=== PATIENT | male | born 1960 | race Caucasian/White ===

== ENCOUNTER 2016-10-31 12:37 | Emergency (ER) | payer MEDICARE, OTHER ==
[2016-10-31] MEDS ORDERED: LIDOCAINE 1% W/ EPINEPHRINE 20 ML VIAL INJ ONE (12:43)
[2016-10-31 13:02] VITALS: TEMP 96.4
[2016-10-31] MEDS ORDERED: TETANUS,DIPHTHERIA,PERTUSSIS 1 EA SYG IM ONE (13:24)
[2016-10-31] MEDS ORDERED: SULFA/TRIMETH 800/160 (DS) TAB 1 EA TAB PO ONE (13:24)
[2016-10-31] MEDS ORDERED: cefTRIAXone SODIUM 1 GM in SODIUM CHL 0.9% 50ML MIN-BAG+ 50 ML IVPB ONE (13:24)
[2016-10-31] MEDS ORDERED: KETOROLAC TROMETHAMINE INJ 30 MG/ML VIAL IV ONE (13:25)
[2016-10-31] MEDS ORDERED: SODIUM CHL 0.9% 50ML MIN-BAG+ 50 ML IVPB ONE (13:42)
[2016-10-31] MEDS ORDERED: cefTRIAXone SODIUM 1 GM VIAL ONE (13:42)
--- NOTE | 2016-10-31 13:57 | RAD ---
EXAM DESCRIPTION: Right tibia and fibula, two views. CLINICAL HISTORY: Laceration. Pain. FINDINGS/IMPRESSION: No radiopaque foreign body. There is some air within the soft tissues along the mid aspect of the lower leg No fracture or other bony abnormality Electronically signed by: Enio Omer MD 10/31/2016 13:55
--- NOTE | 2016-10-31 14:31 | ED.PDOC ---
History of Present Illness - General Chief Complaint: Laceration Stated Complaint: RLE laceration Time Seen by Provider: 10/31/16 13:24 Source: patient Exam Limitations: no limitations - History of Present Illness Initial Comments: the patient is a 55-year-old male presenting to the emergency room secondary to sustaining a laceration to his right lower extremity due to a lawnmower deck falling on his christensen. He sustained a V-shaped laceration through the skin that is approximately 5 inches on one arm and 4 inches on the other. Estimated blood loss of 20 cc. 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 No other injuries. He does have a history of substance abuse. He was able to ambulate in Timing/Duration: momentarily Severity: moderate Improving Factors: nothing Worsening Factors: nothing Allergies/Adverse Reactions: Allergies NO KNOWN ALLERGY Allergy (Verified 10/31/16 13:02) Home Medications: Ambulatory Orders Qorluplobdadl-Fkcy-Pexfdinkve [Fioricet] 1 ea PO Q8H PRN #21 tab 10/31/16 Sulfamethoxazole-Trimethoprim [Bactrim Ds 800-160 mg] 1 tab PO DAILY #7 tab Review of Systems - Review of Systems Constitutional: States: no symptoms reported EENTM: States: no symptoms reported Respiratory: States: no symptoms reported Cardiology: States: no symptoms reported Gastrointestinal/Abdominal: States: no symptoms reported Genitourinary: States: no symptoms reported Musculoskeletal: States: no symptoms reported Skin: States: see HPI Neurological: States: no symptoms reported All other Systems: No Change from Baseline Past Medical History (General) - Patient Medical History Hx Hepatitis C: Yes - Vaccination History Hx Tetanus, Diphtheria Vaccination: No Hx Influenza Vaccination: No Hx Pneumococcal Vaccination: No - Social History Hx Tobacco Use: Yes Cigarettes Packs Per Day: 1 Hx Alcohol Use: Yes - occasional Hx Substance Use: No Hx Substance Use Treatment: No Hx Depression: No - Activities of Daily Living Hospice Agency (if applicable):: None - Female History Patient is a Female of Child Bearing Age (10 -59 yrs old): No Patient : No Family Medical History - Family History Mother Family History: Unknown Physical Exam - Physical Exam General Appearance: Alert, Anxious Eye Exam: bilateral normal Ears, Nose, Throat: normal ENT inspection, normal pharynx Neck: non-tender, full range of motion, supple, normal inspection Respiratory: chest non-tender, lungs clear, normal breath sounds, no respiratory distress, no accessory muscle use Cardiovascular/Chest: normal peripheral pulses, regular rate, rhythm, no edema Peripheral Pulses: radial,right: 2+, radial,left: 2+, dorsalis pedis,right: 2+, dorsalis pedis,left: 2+, posterior tibialis,right: 2+, posterior tibialis,left: 2+ Gastrointestinal/Abdominal: non tender, soft Rectal Exam: deferred Back Exam: normal inspection - scars present Extremity: normal range of motion, no pedal edema, no calf tenderness, normal capillary refill Neurologic: alert, normal mood/affect, oriented x 3 Skin Exam: normal color, other - laceration as described above. There does not appear to be any extension into the underlying bone, tendon or muscle bellies. Comments: Vital Signs - 24 hr 10/31/16 12:40 Temperature 96.4 F L Pulse Rate [ 77 pulse ox] Respiratory 20 Rate Blood Pressure 141/85 [Right Arm] O2 Sat by Pulse 98 Oximetry Progress - Progress Progress: 10/31/16 14:36 the patient is a 55-year-old male presenting with a right lower extremity laceration that is 5" x 4" in a V shape. After risk and benefits were explained, the patient agreed to proceed with repair. 1% lidocaine with epinephrine 10 cc was used for local anesthetic. Wound was irrigated with 1 L of sterile saline. wound was reapproximated with 20 sutures of 3-0 Ethilon. Good hemostasis was obtained. Wound was sterilely dressed. The patient received a dose of Bactrim and Rocephin. Sutures need to come out in 10 days. He needs to follow-up with his primary care doctor in 5 days. he received a tetanus shot. He needs to return to the emergency room for any acute worsening. He will be placed on Bactrim daily for 7 days. Fioricet was written for pain control. - Results/Orders Results/Orders: x-ray of the tib-fib shows no evidence of fracture or dislocation Departure - Departure Clinical Impression: Accidental laceration Disposition: Discharge to Home or Self Care Condition: Fair Departure Forms: ED Discharge - Pt. Copy, Patient Portal Self Enrollment Instructions: DI for Laceration Repair -- Simple Diet: regular diet Activity: increase activity as tolerated Referrals: YULISSA INMAN [Primary Care Provider] - 1-5 Days Prescriptions: Sulfamethoxazole-Trimethoprim [Bactrim Ds 800-160 mg] 1 tab PO DAILY #7 tab Kwbgyepcuyktw-Ivvy-Czwgnrmbxx [Fioricet] 1 ea PO Q8H PRN #21 tab PRN Reason: Pain Home Medications: Ambulatory Orders Zrpceoxpazieq-Jafu-Ltqfxgujka [Fioricet] 1 ea PO Q8H PRN #21 tab 10/31/16 Sulfamethoxazole-Trimethoprim [Bactrim Ds 800-160 mg] 1 tab PO DAILY #7 tab Additional Instructions: the patient is a 55-year-old male presenting with a right lower extremity laceration that is 5" x 4" in a V shape. After risk and benefits were explained, the patient agreed to proceed with repair. 1% lidocaine with epinephrine 10 cc was used for local anesthetic. Wound was irrigated with 1 L of sterile saline. wound was reapproximated with 20 sutures of 3-0 Ethilon. Good hemostasis was obtained. Wound was sterilely dressed. The patient received a dose of Bactrim and Rocephin. Sutures need to come out in 10 days. He needs to follow-up with his primary care doctor in 5 days. he received a tetanus shot. He needs to return to the emergency room for any acute worsening. He will be placed on Bactrim daily for 7 days. Fioricet was written for pain control.
[2016-10-31 15:22] VITALS: BP 154/105; O2SAT 97
== END 2016-10-31 15:10 | disposition home or self-care (01) ==
LOC: ER 12:37
DX: S81.811A Laceration without foreign body, right lower leg, initial encounter (principal); F17.210 Nicotine dependence, cigarettes, uncomplicated; W45.8XXA Other foreign body or object entering through skin, initial encounter; Z86.19 Personal history of other infectious and parasitic diseases

== ENCOUNTER → 2016-11-18 | Outpatient (CLI) | payer OTHER | END | disposition home or self-care (01) | LOC: YCFC.O 15:42 | PROVIDERS: ATTEND Nurse Practitioner Family | DX: L03.119 Cellulitis of unspecified part of limb (principal) ==

== ENCOUNTER → 2016-12-05 | Outpatient (CLI) | payer OTHER ==
--- NOTE | 2016-12-06 09:01 | RAD ---
EXAM DESCRIPTION: Tibia/Fibula,Right CLINICAL HISTORY: R/O OSTEOMYELITIS COMPARISON: October 31, 2016 IMPRESSION: 2 views of the right tibia and fibula show no evidence of acute fracture, focal bone destruction, or joint dislocation. No obvious periosteal thickening or reaction is seen. There has been interval resolution of the soft tissue emphysema seen on previous exam. Electronically signed by: Buck Anguiano MD 12/06/2016 8:59 AM CDT
== END | disposition home or self-care (01) ==
LOC: YCFC.O 15:03
PROVIDERS: ATTEND Nurse Practitioner Family
DX: L03.119 Cellulitis of unspecified part of limb (principal); M79.661 Pain in right lower leg